=== PATIENT | female | born 1985 | race American Indian/Alaskan Native ===

== ENCOUNTER 2017-04-17 20:38 | Emergency (ER) | payer SELFPAY ==
[2017-04-17 21:01] VITALS: TEMP 98.2
--- NOTE | 2017-04-17 21:03 | C.PDOC ---
History Of Present Illness 31 year old female with a Hx of HTN who presents to the ER with a complaint of constant palpitations since 04/10. Patient states she was started on blood pressure medication when she was in [place] 4 months ago when it was discovered ; she reports she had palpitations at time as well. Patient does not have good compliance with her medication. Denies dizziness, SOB, chest pain, PMHx, or drug use. Time Seen by Provider: 04/17/17 21:02 Chief Complaint (Nursing): High Blood Pressure History Per: Patient History/Exam Limitations: no limitations Onset/Duration Of Symptoms: Days Current Symptoms Are (Timing): Still Present Associated Symptoms: denies: Chest Pain, Dyspnea, Dizziness, Headache Quality Of Symptoms: Rapid Heart Rate Recent travel outside of the [facility]: No Past Medical History Reviewed: Historical Data, Nursing Documentation, Vital Signs Vital Signs: Last Vital Signs Temp 98.2 F 04/17/17 20:48 Pulse 103 H 04/17/17 23:59 Resp 18 04/17/17 23:59 BP 158/107 H 04/17/17 23:59 Pulse Ox 100 04/18/17 00:11 - Medical History PMH: HTN Surgical History: No Surg Hx Family History: States: Unknown Family Hx - Social History Hx Tobacco Use: No Hx Alcohol Use: No Hx Substance Use: No Review Of Systems Constitutional: Negative for: Fever, Chills Cardiovascular: Positive for: Palpitations. Negative for: Chest Pain Respiratory: Negative for: Cough, Shortness of Breath Gastrointestinal: Negative for: Nausea, Vomiting, Abdominal Pain Musculoskeletal: Negative for: Neck Pain, Shoulder Pain Neurological: Negative for: Weakness, Numbness, Dizziness Physical Exam - Physical Exam Appears: Non-toxic, No Acute Distress Skin: Normal Color, Warm, Dry Head: Atraumatic, Normacephalic Oral Mucosa: Moist Chest: Symmetrical, No Tenderness Cardiovascular: Rhythm Regular (Tachycardic), No Murmur Respiratory: Normal Breath Sounds, No Rales, No Rhonchi, No Wheezing Gastrointestinal/Abdominal: Soft, No Tenderness Neurological/Psych: Oriented x3, Normal Speech, Normal Cognition, Other (No focal deficits) ED Course And Treatment - Laboratory Results Result Diagrams: 04/17/17 21:21 04/17/17 21:21 O2 Sat by Pulse Oximetry: 100 (Room air) Pulse Ox Interpretation: Normal - Radiology CXR: Interpreted by Me, Viewed By Me CXR Interpretation: Yes: No Acute Disease Medical Decision Making Medical Decision Making: EKG, blood work, and CXR ordered. Trandate administered. EKG: Sinus tach 131, normal axis and intervals, no acute ischemia 1210 the pt is resting comfortably, playing on phone, pleasant, no distress. she reports feeling better. palpitations are resolved. I disc w her importance of compliance w med and follow up with her pmd. she v/u. Disposition - Disposition Disposition: HOME/ ROUTINE Disposition Time: 00:18 Condition: STABLE Additional Instructions: Please follow up with your doctor. Take your medication as directed. Return to the ER for any worsening symptoms or for any other concerns. Forms: General Discharge Instructions - Clinical Impression Clinical Impression: Hypertensive crisis - Scribe Statement The provider has reviewed the documentation as recorded by the Marielenaibras Velarde All medical record entries made by the Marielenaibe were at my direction and personally dictated by me. I have reviewed the chart and agree that the record accurately reflects my personal performance of the history, physical exam, medical decision making, and the department course for this patient. I have also personally directed, reviewed, and agree with the discharge instructions and disposition.
[2017-04-17] MEDS ORDERED: Labetalol 5 mg/ml Inj 20ML IVP STA ×3 (21:16→22:16)
[2017-04-17 21:25] LABS: BASO # 0.1 K/uL (0.0-0.2); BASO % 0.7 % (0.0-2.0); EOS # 0.3 K/uL (0.0-0.7); EOS % 2.6 % (0.0-4.0); HEMOGLOBIN 12.3 g/dL (11.0-16.0); LYMPH % 34.9 % (20.0-40.0); MEAN CELL VOLUME 81.7 fL (81.0-99.0); MEAN CORPUSCULAR HEMOGLOBIN 25.8 pg (27.0-31.0); MEAN CORPUSCULAR HGB CONC 31.6 g/dL (33.0-37.0); MEAN PLATELET VOLUME 9.5 fL (7.2-11.7); MONO # 0.8 K/uL (0.0-0.8); MONO % 6.9 % (0.0-10.0); NEUT # 6.4 K/uL (1.8-7.0); NEUT % 54.9 % (50.0-75.0); RBC 4.78 Mil/uL (3.80-5.20); RED CELL DISTRIBUTION WIDTH 14.6 % (11.5-14.5); WHITE BLOOD COUNT 11.6 K/uL (4.8-10.8)
[2017-04-17] MEDS ORDERED: Labetalol 25mg/5ml Syringe IVP STA (21:25)
[2017-04-17] MEDS ORDERED: Esmolol 100 mg/10ml Inj IV ONE (21:31)
[2017-04-17 21:40] LABS: SQUAMOUS EPITHIAL 3 /hpf (0-5); URINE BILIRUBIN NEGATIVE (NEGATIVE); URINE BLOOD NEGATIVE (NEGATIVE); URINE CLARITY Clear (Clear); URINE COLOR Straw (YELLOW); URINE GLUCOSE (UA) NORMAL (Normal); URINE LEUKOCYTE ESTERASE TRACE Leu/uL (Negative); URINE NITRATE NEGATIVE (NEGATIVE); URINE PROTEIN NEGATIVE (NEGATIVE); URINE UROBILINOGEN NORMAL mg/dL (0.2-1.0)
[2017-04-17 21:45] LABS: HCG,QUALITATIVE URINE NEGATIVE (NEGATIVE)
[2017-04-17] MEDS ORDERED: Labetalol 25mg/5ml Syringe ONE (21:50)
[2017-04-17 21:56] LABS: ALBUMIN 4.2 g/dL (3.5-5.0)
[2017-04-17 21:59] LABS: ALB/GLOB RATIO 1.1 (1.0-2.1); AST/SGOT 53 U/L (14-36); BLOOD UREA NITROGEN 16 mg/dL (7-17); GFR AFRICAN-AMERICAN > 60; GFR NON-AFRICAN AMERICAN > 60
[2017-04-17 22:00] LABS: ALT/SGPT 32 U/L (9-52); MAGNESIUM 2.1 mg/dL (1.6-2.3)
[2017-04-17 22:33] VITALS: RESP 18
[2017-04-17 22:59] VITALS: O2SAT 100
[2017-04-17] MEDS ORDERED: Metoprolol 1 mg/ml Inj IVP ONE ×2 (23:31→23:37)
[2017-04-18 00:26] VITALS: BP 142/85; PULSE 108
--- NOTE | 2017-04-18 08:23 | RAD ---
HISTORY: palpitations COMPARISON: No prior. TECHNIQUE: Chest PA and lateral FINDINGS: LUNGS: No active pulmonary disease. PLEURA: No significant pleural effusion identified. No pneumothorax apparent. CARDIOVASCULAR: Normal. OSSEOUS STRUCTURES: No significant abnormalities. VISUALIZED UPPER ABDOMEN: Normal. OTHER FINDINGS: None. IMPRESSION: No active disease.
--- NOTE | 2017-04-19 11:36 | CARD ---
APPROVED REPORT EKG Measurement Heart [id number] [place] [id number] [id number] <Conclusion> Sinus tachycardia Possible Left atrial enlargement Borderline ECG
== END 2017-04-18 00:36 | disposition home or self-care (01) ==
LOC: C.ER 20:38
DX: I16.9 Hypertensive crisis, unspecified (principal)

== ENCOUNTER 2017-04-26 00:06 | Emergency (ER) | payer SELFPAY ==
--- NOTE | 2017-04-26 00:48 | C.PDOC ---
History Of Present Illness Patient presents to the ER with a complaint of palpitations. Patient states she feels here heart beating fast and feels like her blood pressure is high; she reports she was seen here last week for similar symptoms and given Rx for medication but she has yet to fill them out. Denies chest pain, SOB, or nausea. Time Seen by Provider: 04/26/17 00:48 Chief Complaint (Nursing): High Blood Pressure History Per: Patient History/Exam Limitations: no limitations Onset/Duration Of Symptoms: Hrs Current Symptoms Are (Timing): Still Present Associated Symptoms: denies: Chest Pain, Dyspnea, Dizziness Quality Of Symptoms: Rapid Heart Rate Severity: Moderate Pain Scale Rating Of: 4 Exacerbating Factor(s): Pos: None Recent travel outside of the [place]: No Past Medical History Reviewed: Historical Data, Nursing Documentation, Vital Signs Vital Signs: Last Vital Signs Temp 98.3 F 04/26/17 00:27 Pulse 106 H 04/26/17 03:04 Resp 15 04/26/17 03:04 BP 131/87 04/26/17 03:04 Pulse Ox 100 04/26/17 03:04 - Medical History PMH: HTN Surgical History: No Surg Hx Family History: States: No Known Family Hx - Social History Hx Tobacco Use: No Hx Alcohol Use: No Hx Substance Use: No - Immunization History Hx Influenza Vaccination: No Hx Pneumococcal Vaccination: No Review Of Systems Constitutional: Negative for: Fever, Chills Cardiovascular: Positive for: Palpitations. Negative for: Chest Pain Respiratory: Negative for: Shortness of Breath Gastrointestinal: Negative for: Nausea Physical Exam - Physical Exam Appears: Non-toxic Skin: Warm, Dry Oral Mucosa: Moist Chest: Symmetrical, No Tenderness Cardiovascular: Rhythm Regular (Tachycardic), No Murmur Respiratory: No Rales, No Rhonchi, No Wheezing Gastrointestinal/Abdominal: Soft, No Tenderness, Other (Obese) Neurological/Psych: Oriented x3 ED Course And Treatment - Laboratory Results Result Diagrams: 04/26/17 01:12 04/26/17 01:12 ECG: Interpreted By Me, Viewed By Me ECG Rhythm: Sinus Tachycardia (124), Nonspecific Changes O2 Sat by Pulse Oximetry: 98 Pulse Ox Interpretation: Normal Progress Note: EKG and blood work ordered. Reevaluation Time: 03:20 Reassessment Condition: Improved Disposition Counseled Patient/Family Regarding: Studies Performed, Diagnosis, Need For Followup - Disposition Referrals: [facility] [Outside] [facility] [Outside] Disposition: HOME/ ROUTINE Disposition Time: 00:48 Condition: FAIR Instructions: Palpitations (ED), Hypertension (DC) - Clinical Impression Clinical Impression: Palpitations, Hypertension - Scribe Statement The provider has reviewed the documentation as recorded by the Scribe Ko Velarde All medical record entries made by the Marielenaibe were at my direction and personally dictated by me. I have reviewed the chart and agree that the record accurately reflects my personal performance of the history, physical exam, medical decision making, and the department course for this patient. I have also personally directed, reviewed, and agree with the discharge instructions and disposition.
[2017-04-26 01:15] LABS: BASO # 0.1 K/uL (0.0-0.2); BASO % 0.4 % (0.0-2.0); EOS # 0.1 K/uL (0.0-0.7); EOS % 0.8 % (0.0-4.0); HEMOGLOBIN 12.6 g/dL (11.0-16.0); LYMPH # 2.2 K/uL (1.0-4.3); LYMPH % 17.6 % (20.0-40.0); MEAN CELL VOLUME 81.8 fL (81.0-99.0); MEAN CORPUSCULAR HEMOGLOBIN 25.9 pg (27.0-31.0); MEAN CORPUSCULAR HGB CONC 31.6 g/dL (33.0-37.0); MEAN PLATELET VOLUME 9.1 fL (7.2-11.7); MONO # 0.6 K/uL (0.0-0.8); MONO % 4.7 % (0.0-10.0); NEUT # 9.5 K/uL (1.8-7.0); NEUT % 76.5 % (50.0-75.0); NRBC % 0.2 % (0.0-2.0); RBC 4.87 Mil/uL (3.80-5.20); RED CELL DISTRIBUTION WIDTH 14.2 % (11.5-14.5); WHITE BLOOD COUNT 12.4 K/uL (4.8-10.8)
[2017-04-26 01:19] LABS: SQUAMOUS EPITHIAL < 1 /hpf (0-5); URINE BILIRUBIN NEGATIVE (NEGATIVE); URINE BLOOD NEGATIVE (NEGATIVE); URINE CLARITY Clear (Clear); URINE COLOR Colorless (YELLOW); URINE GLUCOSE (UA) NORMAL (Normal); URINE LEUKOCYTE ESTERASE NEG Leu/uL (Negative); URINE NITRATE NEGATIVE (NEGATIVE); URINE PROTEIN NEGATIVE (NEGATIVE); URINE UROBILINOGEN NORMAL mg/dL (0.2-1.0)
[2017-04-26 01:22] LABS: HCG,QUALITATIVE URINE NEGATIVE (NEGATIVE)
[2017-04-26 01:28] LABS: ALBUMIN 4.3 g/dL (3.5-5.0); ALT/SGPT 35 U/L (9-52); AST/SGOT 32 U/L (14-36); BLOOD UREA NITROGEN 9 mg/dL (7-17); CALCIUM 9.3 mg/dl (8.6-10.4); GFR AFRICAN-AMERICAN > 60; GFR NON-AFRICAN AMERICAN > 60
[2017-04-26 01:44] LABS: BARBITURATES, UR NEGATIVE (NEGATIVE)
[2017-04-26 01:45] LABS: BENZODIAZEPINES, UR NEGATIVE (NEGATIVE)
[2017-04-26 01:48] LABS: OPIATES, UR NEGATIVE (NEGATIVE)
[2017-04-26 01:49] LABS: PHENCYCLIDINE, UR NEGATIVE (NEGATIVE)
[2017-04-26 03:26] VITALS: BP 112/88; PULSE 99; RESP 22; TEMP 99.4; O2SAT 100
--- NOTE | 2017-04-27 14:22 | CARD ---
APPROVED REPORT EKG Measurement Heart [id number] [place] [id number] [id number] <Conclusion> Sinus tachycardia T wave abnormality, consider inferior ischemia Abnormal ECG
== END 2017-04-26 03:30 | disposition home or self-care (01) ==
LOC: C.ER 00:06
DX: R00.2 Palpitations (principal); I10 Essential (primary) hypertension
CPT/HCPCS: 80053; 81001; 84443; 84484; 84703; 85025; 93005; 99285; G0480

== ENCOUNTER 2017-05-08 15:14 | Emergency (ER) | payer SELFPAY ==
[2017-05-08 15:43] VITALS: TEMP 98.9
[2017-05-08 17:01] VITALS: RESP 16; O2SAT 100
--- NOTE | 2017-05-08 17:45 | C.PDOC ---
History Of Present Illness Reginald Mcghee, a 31 year old female, with a past medical history of hypertension presents to the emergency department with high blood pressure and palpitations. The patient reports that while at home she was startled by a fire alarm which caused her to jump out of her sleep. She states that immediately she felt a headache and so she went to the pharmacy to have her blood pressure checked. The patient states that at the pharmacy she was told to go home and rest and when she woke up her palpitations would subside. She states that she did do so but when she woke up she still felt palpitations and decided to come into the emergency department to get checked. The patient states that while she was back in [place] she was told she had hypertension and was prescribed losartan and amlodipine. The patient states she takes both medications once per day. Time Seen by Provider: 05/08/17 16:38 Chief Complaint (Nursing): Palpitations History Per: Patient History/Exam Limitations: no limitations Onset/Duration Of Symptoms: Hrs Past Medical History Reviewed: Historical Data, Nursing Documentation, Vital Signs Vital Signs: Last Vital Signs Temp 98.9 F 05/08/17 15:39 Pulse 95 H 05/08/17 18:02 Resp 16 05/08/17 18:02 BP 140/97 H 05/08/17 18:02 Pulse Ox 100 05/08/17 18:34 - Medical History PMH: HTN Family History: States: Unknown Family Hx - Social History Hx Tobacco Use: No Hx Alcohol Use: No Hx Substance Use: No - Immunization History Hx Influenza Vaccination: No Hx Pneumococcal Vaccination: No Review Of Systems Except As Marked, All Systems Reviewed And Found Negative. Cardiovascular: Positive for: Palpitations, Other (high blood pressure) Physical Exam - Physical Exam Appears: Well, Non-toxic, No Acute Distress Skin: Normal Color, Warm, Dry, Diaphoretic Head: Atraumatic, Normacephalic Eye(s): bilateral: Normal Inspection, PERRL, EOMI Chest: No Deformity, No Tenderness Cardiovascular: Other (Tachycardic) Respiratory: Normal Breath Sounds, No Wheezing Neurological/Psych: Oriented x3, Normal Speech ED Course And Treatment ECG: Interpreted By Me ECG Rhythm: Sinus Tachycardia (170), Nonspecific Changes (no depressions) O2 Sat by Pulse Oximetry: 100 (RA) Pulse Ox Interpretation: Normal Medical Decision Making Medical Decision Makin Initial Impression: 31 year old female presenting with palpitations and high blood pressure Initial Plan: * EKG * Tylenol 975 mg PO * Norvasc 5mg PO * Cozaar 50mg PO * Reevaluation __ Scribe Attestation Documented by Heather Abel acting as a scribe fro Anna Samayoa MD. Provider Attestation All medical record entries made by the scribe were at my direction and personally dictated by me. I have reviewed the chart and agree that the record accurately reflects my personal performance, history, physical exam, medical decision making, and the department course for this patient. Ihave also personally directed, reviewed, and agree with the discharge instructions and disposition. symptoms resolved Disposition Counseled Patient/Family Regarding: Diagnosis, Need For Followup - Disposition Disposition: HOME/ ROUTINE Disposition Time: 18:33 Condition: STABLE Additional Instructions: Take your medications as indicated. Follow up with your doctor. Return to the Emergency Department with any other concerns. Instructions: Palpitations (ED) Forms: [facility] (Romanian), General Discharge Instructions - POA Present On Arrival: None - Clinical Impression Clinical Impression: Palpitations
[2017-05-08 18:47] VITALS: BP 124/89; PULSE 94
--- NOTE | 2017-05-09 12:30 | CARD ---
APPROVED REPORT EKG Measurement Heart [id number] [place] 158P27 [id number] <Conclusion> Sinus tachycardia Otherwise normal ECG
== END 2017-05-08 18:47 | disposition home or self-care (01) ==
LOC: C.ER 15:14
DX: R00.2 Palpitations (principal); I10 Essential (primary) hypertension